=== PATIENT | female | born 2000 ===

== ENCOUNTER 2024-08-04 07:04 | Outpatient (REF) | payer OTHER, SELFPAY ==
--- NOTE | ~2024-08-04 | US_ITS ---
EXAMINATION: US PELVIS CLINICAL INFORMATION: Amenorrhea COMPARISON: None available. TECHNIQUE: Ultrasound of the pelvis is performed using both transabdominal and transvaginal transducers along with Doppler. Transvaginal imaging is performed due to inadequate visualization transabdominally. FINDINGS: Uterus: The uterus is anteverted and measures 6.1 x 3.5 x 4.0 Endometrium measures 0.2 cm. The uterus is smooth in contour and has normal myometrial echogenicity. 8 mm exophytic structure identified left anterior uterus, likely small fibroid. Adnexa: Both ovaries are visualized. There is normal color flow to the adnexa. There is no ovarian torsion. There is no pelvic ascites or fluid collection. Right ovary measures 2.8 x 2.2 x 3.6 cm. Total volume is 11 mL. Left ovary measures 3.1 x 2.5 x 2.7 cm. Volume is 11 mm . US/US pelvic and transvaginal IMPRESSION: 1. 8 mm left anterior uterine fibroid. 2. Unremarkable ovaries. Electronically signed by: Sandy Grimaldo MD 08/04/2024 04:17 PM [facility]ONES
== END 2024-08-04 07:05 | disposition home or self-care (01) ==
LOC: HO.UMASIMG 07:04
PROVIDERS: Visit Provider Nurse Practitioner Women's Health
DX: N91.2 Amenorrhea, unspecified (principal)
CPT/HCPCS: 76830; 76856

== ENCOUNTER 2025-07-22 06:39 | Outpatient (REF) | payer OTHER, SELFPAY ==
--- NOTE | ~2025-07-22 | US_ITS ---
EXAMINATION: US PELVIS CLINICAL INFORMATION: Irregular menses since IUD insertion 05/22/2025 COMPARISON: 08/04/2024 TECHNIQUE: Ultrasound of the pelvis is performed using both transabdominal and transvaginal transducers along with Doppler. Transvaginal imaging is performed due to inadequate visualization transabdominally. FINDINGS: Uterus: The uterus is anteflexed and measures 7.1 x 3.7 x 4.0 cm. The double wall endometrial thickness is 6 mm. The uterus is smooth in contour and has normal myometrial echogenicity. No visible fibroid. T-shaped IUD projects in the upper uterine canal. Adnexa: Both ovaries are visualized. There is normal color flow to the adnexa. There is no ovarian torsion. There is no pelvic ascites or fluid collection. Right ovary measures 3.5 x 2.3 x 3.1 cm. Left ovary measures 3.5 x 2.2 x 2.5 cm. \ US/US pelvic and transvaginal IMPRESSION: Properly positioned IUD. Electronically signed by: Ricky Mayo MD 07/22/2025 11:57 AM EST
== END 2025-07-22 06:40 | disposition home or self-care (01) ==
LOC: HO.UMASIMG 06:39
PROVIDERS: Visit Provider Nurse Practitioner Women's Health
DX: Z30.431 Encounter for routine checking of intrauterine contraceptive device (principal); N92.6 Irregular menstruation, unspecified
CPT/HCPCS: 76830; 76856

== ENCOUNTER → 2025-07-22 10:16 | Outpatient (BNV) | payer OTHER, SELFPAY | PROVIDERS: Visit Provider Radiology Diagnostic Radiology | DX: N92.6 Irregular menstruation, unspecified (principal) | CPT/HCPCS: 76830; 76856 ==